=== PATIENT | male | born 2000 | race African-American/Black ===

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

== ENCOUNTER 2021-11-16 19:17 | Emergency (ER) | payer MEDICAID ==
[~2021-11-16] VITALS: Ht 170.2 cm; Wt 46.0 kg
[~2021-11-16 19:17] MED LIST: NAPR-681 MT
[2021-11-16 19:27] VITALS: BP 137/96
[2021-11-16 21:40] LABS: BASOPHILS % 0.3 % (0.0-2.0); EOSINOPHILS % 1.2 % (0.0-5.0); HEMATOCRIT. 50.5 % (42.0-52.0); HEMOGLOBIN. 17.7 g/dL (14.0-18.0); LYMPHOCYTES % 21.2 % (20.0-50.0); MEAN CORPUSCULAR HEMOGLOBIN 30.6 pg (28.0-32.0); MEAN CORPUSCULAR VOLUME 87.1 fL (80.0-94.0); MEAN PLATELET VOLUME 8.4 fl (7.4-10.4); NEUTROPHILS % 66.3 % (40.0-76.0); PLATELET 285 x1000/uL (130-400); RED BLOOD CELL COUNT 5.79 mill/uL (4.7-6.1); RED CELL DISTRIBUTION WIDTH 13.2 % (11.6-14.6)
[2021-11-16 21:53] LABS: ETHANOL BLOOD < 10 mg/dL
[2021-11-16 22:00] LABS: CHLORIDE 90 mEq/L (98-107)
[2021-11-16] MEDS ORDERED: KETOROLAC 30MG/ML VIAL IV STA (22:43)
[2021-11-16] MEDS ORDERED: ONDANSETRON HCL 4MG/2ML INJ IV STA (22:43)
[2021-11-16] MEDS ORDERED: SODIUM CHLORIDE 0.9% 1,000 ML IV ONE (22:45)
[2021-11-16 22:53] LABS: CLARITY URINE CLEAR (CLEAR); COLOR URINE YELLOW (YELLOW); KETONES URINE 4+ (NEGATIVE); LEUKOCYTE ESTERASE URINE NEGATIVE (NEGATIVE); NITRITE URINE NEGATIVE (NEGATIVE); OCCULT BLOOD URINE NEGATIVE (NEGATIVE); PROTEIN URINE 1+ (NEGATIVE); SPECIFIC GRAVITY URINE 1.031 (1.005-1.030)
[2021-11-16 23:10] LABS: *AMPHETAMINES SCREEN URINE NEGATIVE (NEGATIVE); *BARBITURATES SCREEN URINE NEGATIVE (NEGATIVE); *BENZODIAZEPINES SCREEN URINE NEGATIVE (NEGATIVE); *COCAINE SCREEN URINE PRESUMTIVE POSITIVE (NEGATIVE); METHADONE URINE SCREEN NEGATIVE (NEGATIVE); OPIATES URINE SCREEN NEGATIVE (NEGATIVE)
[2021-11-16 23:11] LABS: CANNABINOID URINE SCREEN PRESUMTIVE POSITIVE (NEGATIVE); PHENCYCLIDINE URINE SCREEN NEGATIVE (NEGATIVE)
[2021-11-16] MEDS ORDERED: DICY20TA11 MT (23:22)
[2021-11-16] MEDS ORDERED: ONDA4TAB11 PO (23:22)
[2021-11-16] MEDS ORDERED: OMEP20CA14 MT (23:22)
== END 2021-11-17 06:27 | disposition home or self-care (01) ==
LOC: ER 19:17
DX: R10.13 Epigastric pain (principal); R11.10 Vomiting, unspecified; F14.10 Cocaine abuse, uncomplicated; E86.0 Dehydration
CPT/HCPCS: 36415; 76705; 80053; 80305; 80320; 81003; 83690; 85025; 93005; 96361; 96374; 96375; 99285; J1885; J2405; J7030; G0480

== ENCOUNTER 2021-11-17 07:05 | Emergency (ER) | payer MEDICAID ==
[~2021-11-17] VITALS: Ht 170.2 cm; Wt 53.5 kg
[~2021-11-17 07:05] MED LIST changes: +DICY20TA11 MT; +OMEP20CA14 MT; +ONDA4TAB11 PO
[2021-11-17] MEDS ORDERED: FAMOTIDINE 20MG/2ML VIAL IV STA (07:26)
[2021-11-17] MEDS ORDERED: MAGNESIUM/ALUMINUM HYDROXIDE/SIMETHICONE 30ML UDC PO STA (07:26)
[2021-11-17] MEDS ORDERED: DICYCLOMINE 10 MG/5 ML ORAL SYR PO STA (07:26)
[2021-11-17] MEDS ORDERED: VISCOUS LIDOCAINE 2% 15 ML UDC PO STA (07:26)
[2021-11-17] MEDS ORDERED: ONDANSETRON HCL 4MG/2ML INJ IV STA (07:26)
[2021-11-17] MEDS ORDERED: SODIUM CHLORIDE 0.9% 1,000 ML IV ONE (07:30)
[2021-11-17 08:21] LABS: BASOPHILS % 0.3 % (0.0-2.0); EOSINOPHILS % 0.9 % (0.0-5.0); HEMATOCRIT. 48.4 % (42.0-52.0); HEMOGLOBIN. 16.8 g/dL (14.0-18.0); LYMPHOCYTES % 12.9 % (20.0-50.0); MEAN CORPUSCULAR HEMOGLOBIN 30.2 pg (28.0-32.0); MEAN CORPUSCULAR VOLUME 87.1 fL (80.0-94.0); MEAN PLATELET VOLUME 8.7 fl (7.4-10.4); MONOCYTES % 8.5 % (2.0-8.0); NEUTROPHILS % 77.4 % (40.0-76.0); PLATELET 273 x1000/uL (130-400); RED BLOOD CELL COUNT 5.56 mill/uL (4.7-6.1); RED CELL DISTRIBUTION WIDTH 12.8 % (11.6-14.6)
[2021-11-17 08:27] LABS: CHLORIDE 93 mEq/L (98-107)
[2021-11-17 09:24] VITALS: BP 135/92
[2021-11-17] MEDS ORDERED: ACETAMINOPHEN 325MG TABLET PO ONE (09:30)
== END 2021-11-17 10:07 | disposition home or self-care (01) ==
LOC: ER 07:05
DX: R10.13 Epigastric pain (principal)
CPT/HCPCS: 36415; 74176; 80053; 83690; 85025; 96361; 96374; 96375; 99284; J2405; J3490; J7030

== ENCOUNTER 2023-06-14 12:28 | Emergency (ER) | payer MEDICAID ==
[~2023-06-14] VITALS: Ht 175.3 cm; Wt 65.0 kg
[~2023-06-14 12:28] MED LIST changes: -DICY20TA11 MT; +DICY20TA2 MT
[2023-06-14 12:35] VITALS: O2SAT 98
[2023-06-14] MEDS ORDERED: HYDR99LO MT ×2 (13:36)
[2023-06-14 14:10] VITALS: BP 125/78; PULSE 85; RESP 20; TEMP 98.4
[2023-06-14] MEDS ORDERED: HYDR99LO TOP (15:00)
== END 2023-06-14 14:11 | disposition home or self-care (01) ==
LOC: ER 13:11
DX: L30.9 Dermatitis, unspecified (principal); F12.10 Cannabis abuse, uncomplicated
CPT/HCPCS: 99282